=== PATIENT | female | born 1965 | race Caucasian/White ===

== ENCOUNTER 2016-06-30 11:56 | Emergency (ER) | payer OTHER ==
[~2016-06-30 11:56] MED LIST: DULERA 100 MCG/13 G1 INH; ESTRADIOL1 EA10 TD; INHALER; STRATTERA PO; TYLENOL EXTRA500 M1 PO; ULTRAM50 M1 PO; VENTOLIN HFA18 G2 INH; XANAX0.25 M1 PO; XOPENEX0.63 MG/3; ZANAFLEX4 M3 PO; ZYRTEC1010 PO
[2016-06-30] MEDS ORDERED: NEXIUM40 M1 PO (12:05)
[2016-06-30] MEDS ORDERED: VITAMIN D31000 UNI3 PO (12:06)
[2016-06-30] MEDS ORDERED: NORVASC5 M2 PO (12:06)
[2016-06-30] MEDS ORDERED: CYMBALTA20 M1 PO (12:06)
[2016-06-30] MEDS ORDERED: FISH OIL 11000 MG/CA PO (12:07)
[2016-06-30] MEDS ORDERED: FLAX SEED OIL1000 M2 PO (12:08)
[2016-06-30] MEDS ORDERED: ESTRACE1 M3 PO (12:09)
[2016-06-30] MEDS ORDERED: ZANAFLEX4 M2 PO (12:09)
== END 2016-06-30 14:50 ==
LOC: EDMED 11:56
DX: S60.012A Contusion of left thumb without damage to nail, initial encounter (principal); I10 Essential (primary) hypertension; J45.909 Unspecified asthma, uncomplicated; F17.210 Nicotine dependence, cigarettes, uncomplicated; Z79.899 Other long term (current) drug therapy; W22.8XXA Striking against or struck by other objects, initial encounter; Y92.019 Unspecified place in single-family (private) house as the place of occurrence of the external cause